=== PATIENT | male | born 1965 | race Caucasian/White ===

== ENCOUNTER 2016-06-25 07:21 | Emergency (ER) | payer SELFPAY ==
[~2016-06-25] VITALS: Ht 182.9 cm; Wt 85.0 kg
[~2016-06-25 07:21] MED LIST: FLUT1SPR9 NASAL; REST30CA PO
[2016-06-25 07:22] VITALS: BP 171/99; PULSE 70; RESP 15; TEMP 98.4; O2SAT 99
[2016-06-25 08:46] VITALS: BP 151/99; PULSE 88; RESP 18; O2SAT 99
[2016-06-25] MEDS ORDERED: AUGM875T PO (08:52)
[2016-06-25] MEDS ORDERED: IBUP800T23 PO (08:52)
--- NOTE | 2016-06-25 08:52 | PD ---
HPI . right lower jaw dental pain Chief Complaint: Oral / Dental Pain or Problem Time Seen by Provider: 08:40 Travel History International Travel<30 days: No Contact w/Intl Traveler<30days: No Traveled to known affect area: No History of Present Illness HPI 50-year-old male with no significant past medical history other than bilateral hip replacements here with complaints of right lower jaw pain and dental issues. Patient said he's been having problems with his teeth for quite some time. He does not recall whether he seen a dentist in the last 15 years or so. He says all of a sudden the right side of his jaw started bothering him yesterday. He is here seeking antibiotics. He tells me that he needs his tooth extracted. Denies any fever or chills. He has some mild facial swelling. He has no other complaints. PFSH Past Medical History Blood Disorders: No Heart Rhythm Problems: No Cancer: No Cardiac Catheterization: Yes Cardiovascular Problems: No Chest Pain: Yes Diabetes: No Diminished Hearing: No Endocrine: No Gastrointestinal Disorders: No Genitourinary: No Hepatitis: No Hiatal Hernia: No Hypertension: No Immune Disorder: No Implanted Vascular Access Dvce: No Medical other: No Musculoskeletal: Yes (bilateral hips) Neurologic: No Psychiatric: No Reproductive: No Respiratory: No Thyroid Disease: No PNEUMOCCOCAL Vaccine (Year): 2 Past Surgical History Abdominal Surgery: Yes (APPENDECTOMY) AICD: No Body Medical Devices: NONE Cardiac Surgery: No Ear Surgery: No Endocrine Surgery: No Eye Surgery: No Genitourinary Surgery: No Gynecologic Surgery: No Joint Replacement: Yes (LEFT HIP) Neurologic Surgery: No Oral Surgery: Yes (BILATERAL HIPS) Pacemaker: No Thoracic Surgery: Yes (LUNG BX) Other Surgery: Yes (bilateral hips) Social History Alcohol Use: Yes (6-8 BEERS DAILY) Tobacco Use: No Substance Use: No Allergies-Medications (Allergen,Severity, Reaction): Coded Allergies: No Known Allergies (Verified , 11/27/15) Reported Meds & Prescriptions Reported Meds & Active Scripts Active Ibuprofen 800 Mg Tab 800 Mg PO TID Augmentin (Amoxicillin-Clavulanate) 875-125 mg Tab 875 Mg PO BID not for use in CrCl <30 ml/min. Flonase Allergy Relief Ch (Fluticasone Propionate (Nasal)) 50 Mcg/Act Spr 1 [place] NASAL DAILY PRN Reported Restoril 30 mg (Temazepam) 30 Mg Cap 1 Cap PO HS PRN Review of Systems General / Constitutional: No: Fever Eyes: No: Visual changes HENT: Positive: Dental Difficulties, No: Headaches Cardiovascular: No: Chest Pain or Discomfort Respiratory: No: Shortness of Breath Gastrointestinal: No: Abdominal Pain Genitourinary: No: Dysuria Musculoskeletal: No: Pain Skin: No Rash Neurologic: No: Weakness Psychiatric: No: Depression Endocrine: No: Polydipsia Hematologic/Lymphatic: No: Easy Bruising Physical Exam Narrative GENERAL: AAO x 3, no acute distress, Well-nourished, well-developed patient. SKIN: Warm and dry. No visible rashes or bruising. Minimal right lower jaw facial edema HEAD: Normocephalic and atraumatic. EYES: No scleral icterus. No injection or drainage. ENT: No nasal drainage noted. Mucous membranes pink. Airway patent. #[id number], decaying teeth without any evidence of abscess formation. Lots of food debris present. Gums are slightly swollen, there may be the start of an abscess, but it is not formed and can't be drained. He has multiple dental caries, too numerous to count. NECK: Supple, trachea midline. No JVD. No lymphadenopathy CARDIOVASCULAR: Regular rate and rhythm without murmurs, gallops, or rubs. RESPIRATORY: Breath sounds equal bilaterally. No accessory muscle use. No rhonchi or rales. GASTROINTESTINAL: Abdomen soft, non-tender, nondistended. EXTREMITIES: No cyanosis or edema. BACK: Nontender without obvious deformity. No CVA tenderness. PSYCH: AAO x 3, normal affect. Data Data Last Documented VS Vital Signs Date Time Temp Pulse Resp B/P Pulse Ox O2 Delivery O2 Flow Rate FiO2 06/25/16 08:46 88 18 151/99 99 Room Air 06/25/16 07:22 98.4 MDM Medical Decision Making Medical Screen Exam Complete: Yes Emergency Medical Condition: Yes Medical Record Reviewed: Yes Differential Diagnosis Dentalgia, early oral abscess, dental caries Narrative Course 50-year-old male with no significant past medical history other than bilateral hip replacements here with complaints of right lower jaw pain and dental issues. Patient said he's been having problems with his teeth for quite some time. He does not recall whether he seen a dentist in the last 15 years or so. He says all of a sudden the right side of his jaw started bothering him yesterday. He is here seeking antibiotics. He tells me that he needs his tooth extracted. Denies any fever or chills. He has some mild facial swelling. He has no other complaints. Patient seen and examined. He does not have any obvious abscess formation in his oral cavity. However, his teeth are very bad and there may be an underlying infection. He will ultimately need to see a dentist and will need multiple extractions. I will provide him with a course of antibiotics. I will give him ibuprofen 800 mg for pain relief. I have discussed the urgency of dental care. Patient verbalized understanding of instructions, questions were answered, and thanked me for their care. I advised them if their condition worsens, please return to the nearest emergency room for further care. Diagnosis Primary Impression: Dentalgia Additional Impression: Oral cellulitis Patient Instructions: Dental Caries (DC), General Instructions Additional Instructions: Please return to emergency department if your symptoms return or worsen. Follow up with your primary care provider. Take medications as prescribed. Please see a dentist as soon as possible for dental care. Med/Other Pt SpecificInfo: Prescription(s) given Scripts Ibuprofen 800 Mg [id number] Mg PO TID #21 TAB Prov:Iram Petersen MD 06/25/16 Amoxicillin-Clavulanate (Augmentin)875-125 mg [id number] Mg PO BID #20 TAB not for use in CrCl <30 ml/min. Prov:Iram Petersen MD 06/25/16 Disposition: 01 DISCHARGE HOME Condition: Stable Cris Kang Jun 25, 2016 08:51
== END 2016-06-25 09:20 | disposition home or self-care (01) ==
LOC: NEPD 07:21
DX: K12.2 Cellulitis and abscess of mouth (principal)
CPT/HCPCS: 99283